=== PATIENT | female | born 1990 | race Caucasian/White ===

== ENCOUNTER 2019-06-04 20:55 | Emergency (ER) | payer OTHER ==
[2019-06-04 21:11] VITALS: BP 107/63
--- NOTE | 2019-06-04 21:46 | ED Physician Documentation ---
PD HPI URI - Stated complaint Stated Complaint: FLU LIKE SYMP. - Chief complaint Chief Complaint: Resp - History obtained from History obtained from: Patient - History of Present Illness Timing - onset: How many days ago (3) Timing duration: Days (3) Timing details: Gradual onset Pain level max: 3 Pain level now: 2 Associated symptoms: Fever (100.7), Nasal congestion, Rhinorrhea, Sore throat, Dry cough Contributing factors: Sick contact. No: Travel, Immunocompromised, Unimmunized, COPD / asthma Improves by: Rest Worsened by: Activity, Breathing Recently seen: Not recently seen Review of Systems Constitutional: denies: Fever, Chills Nose: reports: Rhinorrhea / runny nose, Congestion Respiratory: reports: Cough GI: denies: Vomiting, Diarrhea Skin: denies: Rash Musculoskeletal: denies: Neck pain, Back pain Neurologic: denies: Headache PD PAST MEDICAL HISTORY - Past Medical History Past Medical History: No - Past Surgical History Past Surgical History: No - Present Medications Home Medications: Ambulatory Orders Medication Instructions Recorded Confirmed Cetirizine HCl/Pseudoephedrine 1 each PO BID PRN #30 tab.er.12h 06/04/19 [Zyrtec-D Tablet] - Allergies Allergies/Adverse Reactions: Allergies Allergy/AdvReac Type Severity Reaction Status Date / Time codeine AdvReac Unknown Verified 06/04/19 21:42 - Social History Does the pt smoke?: No Smoking Status: Never smoker Does the pt drink ETOH?: Yes Does the pt have substance abuse?: No - Immunizations Immunizations are current?: Yes - POLST Patient has POLST: No PD ED PE NORMAL - Vitals Vital signs reviewed: Yes - General General: Alert and oriented X 3, No acute distress, Well developed/nourished - HEENT HEENT: PERRL, Ears normal, Moist mucous membranes, Pharynx benign - Neck Neck: Supple, no meningeal sign, No adenopathy - Cardiac Cardiac: RRR, Strong equal pulses - Respiratory Respiratory: No respiratory distress, Clear bilaterally - Abdomen Abdomen: Soft, Non tender, Non distended - Derm Derm: Warm and dry, No rash - Neuro Neuro: Alert and oriented X 3 - Psych Psych: Normal mood, Normal affect Results - Vitals Vitals: Vital Signs - 24 hr 06/04/19 21:07 Temperature 37 C Heart Rate 75 Respiratory 18 Rate Blood Pressure 107/63 O2 Saturation 100 Oxygen O2 Source Room air PD MEDICAL DECISION MAKING - ED course Complexity details: considered differential, d/w patient ED course: Patient is well-appearing, nontoxic. Afebrile. No sepsis. No hypoxia. No pneumonia. We will continue supportive care and follow-up with her doctor. Patient counseled regarding signs and symptoms for which I believe and urgent re-evaluation would be necessary. Patient with good understanding of and agreement to plan and is comfortable going home at this time This document was made in part using voice recognition software. While efforts are made to proofread this document, sound alike and grammatical errors may occ ur. Departure - Departure Disposition: Home, Self Care Clinical Impression: Viral URI Condition: Good Instructions: ED URI Viral Follow-Up: Macie Souza PA [Primary Care Provider] - Within 1 week Prescriptions: Cetirizine HCl/Pseudoephedrine [Zyrtec-D Tablet] 1 each PO BID PRN #30 tab.er.12h PRN Reason: nasal congestion Comments: Return if you worsen. This will likely last 10-14 days. Drink plenty of fluids and rest. Discharge Date/Time: 06/04/19 21:50
== END 2019-06-04 21:50 | disposition home or self-care (01) ==
LOC: ED 20:55
DX: J06.9 Acute upper respiratory infection, unspecified (principal)
CPT/HCPCS: 99282; 99284

== ENCOUNTER 2019-09-06 17:08 | Outpatient (CLI) | payer OTHER ==
--- NOTE | 2019-09-07 05:38 | Ultrasound Report ---
Reason: POSITIVE TEST Procedure Date: 09/06/2019 Accession Number: [id number] / [id number] Procedure: US - OB First Trimester CPT Code: Final Report FULL RESULT: EXAM: FIRST TRIMESTER OBSTETRIC ULTRASOUND (Less than 11 weeks) EXAM DATE: 09/06/2019 05:50 PM CLINICAL HISTORY: Positive test. LMP: 07/02/2019. COMPARISONS: None. TECHNIQUE: Transabdominal ultrasound examination with static image documentation. CLINICAL DATES: EGA 9 weeks and 3 days with LUCINDA 04/07/2020 based on LMP. ASSESSMENT: Gestational Sac: Single intrauterine. Mean gestational sac diameter: 42 mm = 9 weeks/5 days. Embryo: CRL (crown-rump length) 21 mm = 8 weeks/5 days. Cardiac activity: 174 beats per minute. Yolk sac: 5 mm. Amniotic fluid: Not accurately assessed at this gestational age. Early placenta: Not visible at this gestational age. Other: 1.2 x 1.1 cm perigestational fluid collection. MATERNAL STRUCTURES: Uterus: Anteverted. Cervix: Closed. Right Ovary/Adnexa: The ovary measures 2.7 x 2.2 x 2.4 cm, volume 7.3 cc. Unremarkable. Left Ovary/Adnexa: The ovary measures 2.7 x 1.3 x 2.5 cm, volume 4.5 cc. Unremarkable. Free Fluid: None. Other: None. IMPRESSION: 1. Single viable intrauterine at EGA 8 weeks and 5 days with LUCINDA 04/12/2020 based on crown-rump length, which is discordant with clinical dates. 2. Assigned dating is LUCINDA 04/12/2020 based on current ultrasound. 3. 1.2 x 1.1 cm perigestational fluid collection. RADIA
== END 2019-09-06 17:09 | disposition home or self-care (01) ==
LOC: DI 17:08
PROVIDERS: ATTEND Nurse Practitioner Obstetrics & Gynecology
DX: Z32.01 Encounter for pregnancy test, result positive (principal)
CPT/HCPCS: 76801

== ENCOUNTER 2019-09-13 08:00 | Outpatient (CLI) | payer OTHER ==
[2019-09-13 15:01] LABS: MUDS CUTOFF CONCENTRATIONS CUTOFF CONC BELOW:
[2019-09-13 15:09] LABS: BILIRUBIN,URINE NEGATIVE (NEGATIVE); GLUCOSE, URINE (UA) NEGATIVE (NEGATIVE); KETONES,URINE (UA) NEGATIVE (NEGATIVE); LEUKOCYTE ESTERASE, URINE SMALL (NEGATIVE); NITRITE,URINE NEGATIVE (NEGATIVE); OCCULT BLOOD,URINE NEGATIVE (NEGATIVE); PROTEIN,URINE NEGATIVE (NEGATIVE); UROBILINOGEN,URINE 0.2 (NORMAL) E.U./dL (NORMAL)
[2019-09-13 15:14] LABS: CLARITY,URINE CLOUDY (CLEAR)
[2019-09-13 15:20] LABS: AMPHETAMINE SCREEN,URINE NEGATIVE (NEGATIVE); BENZODIAZEPINES SCREEN, URINE NEGATIVE (NEGATIVE); COCAINE SCREEN URINE NEGATIVE (NEGATIVE); METHADONE SCREEN, URINE NEGATIVE (NEGATIVE); METHAMPHETAMINES SCREEN, URINE NEGATIVE (NEGATIVE); OPIATE SCREEN, URINE NEGATIVE (NEGATIVE); OXYCODONE SCREEN, URINE NEGATIVE (NEGATIVE); PROPOXYPHENE SCREEN, URINE NEGATIVE (NEGATIVE); TRICYCLIC ANTIDEPRESSANT,URINE NEGATIVE (NEGATIVE)
[2019-09-13 15:25] LABS: AMORPHOUS SEDIMENT,UR Moderate /LPF; BACTERIA,URINE Few /HPF (None Seen); RBC,URINE 0-5 /HPF (0-5); SQUAMOUS EPITHELIAL CELL,UR NONE SEEN (<= Few)
[2019-09-13 21:21] LABS: TRICHOMONAS VAGINALIS DNA NEGATIVE (NEGATIVE)
== END 2019-09-13 23:59 | disposition home or self-care (01) ==
LOC: LAB.R 08:00
PROVIDERS: ATTEND Obstetrics & Gynecology
DX: Z36.89 Encounter for other specified antenatal screening (principal)
CPT/HCPCS: 80306; 81001; 87086; 87491; 87591; 87661

== ENCOUNTER 2019-11-19 08:56 | Outpatient (CLI) | payer OTHER ==
--- NOTE | 2019-11-19 19:15 | Ultrasound Report ---
Reason: SCREENING Procedure Date: 11/18/2019 Accession Number: [id number] / [id number] Procedure: US - OB Detailed Eval CPT Code: Final Report FULL RESULT: PROCEDURE: OB Detailed Eval INDICATIONS: SCREENING OUTSIDE/PRIOR DATING DATA: Last menstrual period (LMP): 07/02/2019. LMP-based estimated date of delivery (LUCINDA): 04/07/2020. First dating scan (date and location): 09/06/2019. Estimated date of delivery (LUCINDA) from first dating scan: 04/12/2020. TECHNIQUE: Real-time scanning was performed of the fetus, with image documentation and biometric measurements. Endovaginal scanning: Not performed COMPARISON: 09/06/2019 FINDINGS: General: A single living intrauterine gestation is present. Presentation: Cephalic/variable Placenta: Placental position is posterior, without previa. Anechoic structure measuring 7.9 x 1.2 x 1.7 cm adjacent to the left placental edge, possibly representing a placental syed. Amniotic fluid index: 9.3 cm, which measures at 6th percentile for gestational age. heart rate: 136 beats per minute. Maternal cervical canal: 6 cm long; normal length is 2.5 cm or more. biometrics: Biparietal diameter: 4.3 cm, correlating with 18 weeks and 6 days Head circumference: 17.1 cm, correlating with 19 weeks and 5 days Abdominal circumference: 15.6 cm, correlating with 20 weeks and 5 days Femur length: 3.0 cm, correlating with 19 weeks and 2 days Estimated gestational age from initial scan: not applicable. Composite gestational age from present scan: 19 weeks and 5 days Estimated weight and percentile: 327 g which correlates with the 85th percentile based off gestational age. Measurement variability in biometric dating: +/- 10 days from 12-20 weeks gestation, +/- 2 weeks from 20-30 weeks gestation, +/- 3 weeks at 30 weeks gestation or later. Anatomic survey: Neuro: Ventricles are normal at less than 10 mm. Cisterna magna is normal at 3-11 mm. Cerebellum is normal in size and morphology. Nuchal skin fold: Normal at less than 6 mm between 14 and 20 weeks gestational age. Face: Nose and lips, facial profile are normal. Spine: No evidence for spina bifida. Heart: 4-chambered heart is present, with normal ventricular outflow tracts. Diaphragm: Diaphragm is intact. Stomach: Left-sided stomach is present. Kidneys: No hydronephrosis. Normal is less than 5 mm in 2nd trimester, less than 7 mm in 3rd trimester. Cord: 3 vessel cord has orthotopic insertion. Bladder: Normal in size. Extremities: All 4 extremities are visualized. IMPRESSION: 1. Single living intrauterine gestation with an estimated sonographic gestational age of approximately 19 weeks and 5 days. Expected interval growth has occurred. 2. Four-quadrant JODIE measured 9.3 cm which correlates with the 6th percentile based on gestational age. Clinical follow-up recommended. 3. Estimated weight of 327 [address] the fetus within the 85th percentile based on gestational age. 4. Unremarkable second trimester anatomic screening survey. Reviewed by: Kayden Juarez MD on 11/19/2019 7:13 PM PDT Approved by: Kayden Juarez MD on 11/19/2019 7:13 PM PDT Station ID: [id number]
== END 2019-11-19 08:57 | disposition home or self-care (01) ==
LOC: DI 08:56
PROVIDERS: ATTEND Obstetrics & Gynecology
DX: Z34.82 Encounter for supervision of other normal pregnancy, second trimester (principal); Z36.89 Encounter for other specified antenatal screening
CPT/HCPCS: 76811

== ENCOUNTER 2019-12-07 13:05 | Outpatient (CLI) | payer OTHER ==
--- NOTE | 2019-12-07 14:45 | Ultrasound Report ---
PROCEDURE: OB F/U or Repeat INDICATIONS: ABNORMAL FINDING IN AMNIOTIC FLUID OUTSIDE/PRIOR DATING DATA: Last menstrual period (LMP): 07/02/2019. LMP-based estimated date of delivery (LUCINDA): 04/07/2020. First dating scan (date and location): 09/06/2019. Estimated date of delivery (LUCINDA) from first dating scan: 04/12/2020. TECHNIQUE: Real-time scanning was performed of the fetus, with image documentation and biometric measurements. Endovaginal scanning: Not needed COMPARISON: OB ultrasound 09/06/2019, 11/19/2019 FINDINGS: General: A single living intrauterine gestation is present. Presentation: Variable Amniotic fluid index: 18.8 cm, 84th percentile for gestational age. A left-sided placental syed ashly ears present measuring approximately 7.9 x 1.2 x 1.7 cm. heart rate: 143 beats per minute. Maternal cervical canal: 4.5 cm long; normal length is 2.5 cm or more. Other: Not applicable. IMPRESSION: Normal amniotic fluid volume. Viable intrauterine gestation, variable in presentation at this time. Reviewed by: Ej Osborn MD on 12/07/2019 2:44 PM PDT Approved by: Ej Osborn MD on 12/07/2019 2:44 PM PDT Station ID: [id number]
== END 2019-12-07 13:06 | disposition home or self-care (01) ==
LOC: DI 13:05
PROVIDERS: ATTEND Obstetrics & Gynecology
DX: O28.9 Unspecified abnormal findings on antenatal screening of mother (principal)
CPT/HCPCS: 76816

== ENCOUNTER 2019-12-08 16:30 | Outpatient (CLI) | payer OTHER | END 2019-12-08 16:31 | disposition home or self-care (01) | LOC: LAB 16:30 | PROVIDERS: ATTEND Physician Assistant | DX: Z11.59 Encounter for screening for other viral diseases (principal) | CPT/HCPCS: 81599 ==

== ENCOUNTER 2020-03-14 08:00 | Outpatient (CLI) | payer OTHER | END 2020-03-14 23:59 | disposition home or self-care (01) | LOC: LAB.R 08:00 | PROVIDERS: ATTEND Nurse Practitioner Obstetrics & Gynecology | DX: Z36.85 Encounter for antenatal screening for Streptococcus B (principal) | CPT/HCPCS: 87797 ==

== ENCOUNTER 2020-03-30 14:27 | Outpatient (CLI) | payer OTHER ==
--- NOTE | 2020-03-30 16:38 | Ultrasound Report ---
PROCEDURE: OB F/U or Repeat INDICATIONS: UTERINE SIZE DESCREPANCY OUTSIDE/PRIOR DATING DATA: Last menstrual period (LMP): 07/02/2019. LMP-based estimated date of delivery (LUCINDA): 04/07/2020. First dating scan (date and location): 09/06/2019. Estimated date of delivery (LUCINDA) from first dating scan: 04/12/2020. TECHNIQUE: Real-time scanning was performed of the fetus, with image documentation and biometric measurements. Endovaginal scanning: Not performed COMPARISON: 11/19/2019 12/07/2019. FINDINGS: General: A single living intrauterine gestation is present. Presentation: Vertex Placenta: Placental position is posterior/fundal, without previa. Amniotic fluid index: 13.2 cm, 50th percentile for gestational age. heart rate: 144 beats per minute. biometrics: Biparietal diameter: 9.0 cm, 36 weeks 4 days Head circumference: 33.8 cm, 38 weeks 5 days Abdominal circumference: 34.3 cm, 38 weeks 1 day Femur length: 7.4 cm, 37 weeks 5 days Estimated gestational age from initial scan: 38 weeks 1 day. Composite gestational age from present scan: 37 weeks 6 days Estimated weight and percentile: 3341 g, 57th percentile Measurement variability in biometric dating: +/- 10 days from 12-20 weeks gestation, +/- 2 weeks from 20-30 weeks gestation, +/- 3 weeks at 30 weeks gestation or more. Other: Normal appearance of the chest, stomach, kidneys and bladder. IMPRESSION: Single living intrauterine fetus in vertex presentation. Normal JODIE Expected interval growth as above Reviewed by: Isiah Ayoub MD on 03/30/2020 4:36 PM PDT Approved by: Isiah Ayoub MD on 03/30/2020 4:36 PM PDT Station ID: [id number]
== END 2020-03-30 14:28 | disposition home or self-care (01) ==
LOC: DI 14:27
PROVIDERS: ATTEND Nurse Practitioner Obstetrics & Gynecology
DX: O26.843 Uterine size-date discrepancy, third trimester (principal); Z3A.37 37 weeks gestation of pregnancy
CPT/HCPCS: 76816

== ENCOUNTER 2020-04-02 19:08 | Inpatient (IN) | payer OTHER ==
[2020-04-02] MEDS ORDERED: METHYLERGONOVINE 0.2 MG/ML VIAL IM PRN (19:33)
[2020-04-02] MEDS ORDERED: CARBOPROST TROMETHAMINE 250 MCG/ML AMP IM PRN (19:33)
[2020-04-02] MEDS ORDERED: miSOPROStoL 200 MCG TABLET BC PRN (19:33)
[2020-04-02] MEDS ORDERED: SODIUM CHLORIDE FLUSH 0.9% 10 ML SYRINGE IVP PRN (19:33)
[2020-04-02] MEDS ORDERED: LIDOCAINE-MPF 1% 30 ML VIAL ID PRN (19:33)
[2020-04-02] MEDS ORDERED: TRANEXAMIC ACID 1,000 MG in SODIUM CHLORIDE 0.9% 100ML 100 ML IV PRN (19:33)
[2020-04-02] MEDS ORDERED: OXYTOCIN/SODIUM CHLORIDE 500 ML IV PRN (19:33)
[2020-04-02] MEDS ORDERED: OXYTOCIN 10 UNIT/ML VIAL IM PRN (19:33)
[2020-04-02] MEDS ORDERED: LACTATED RINGERS 1,000 ML IV ONE (19:39)
[2020-04-02] MEDS ORDERED: OXYTOCIN/SODIUM CHLORIDE 500 ML IV ONE (19:39)
--- NOTE | 2020-04-02 19:49 | HISTORY & PHYSICAL EXAMINATION ---
Admit History - Visit Reason Visit Reason: Contractions - : 4 Parity: 3 Premature: 0 Ectopic: 0 : 0 Care: positive: [facility] Risk/History: positive: None Complications This : positive: None Smoking Status: Never smoker - Mother's Labs Mother's Blood Type: positive: O Mother's RH: positive: Positive GBS: positive: Group B Step Negative Rubella Status: positive: Immune Meds/Allgy - Home Medications Home Medications: Ambulatory Orders Medication Instructions Recorded Confirmed Cetirizine HCl/Pseudoephedrine 1 each PO BID PRN #30 tab.er.12h 06/04/19 [Zyrtec-D Tablet] - Allergies Allergies/Adverse Reactions: Allergies Allergy/AdvReac Type Severity Reaction Status Date / Time codeine AdvReac Unknown Verified 06/04/19 21:42 Review of Systems - Constitutional Constitutional: denies: Fatigue, Fever, Chills - Eyes Eyes: denies: Blurred vision, Spots in vision, Dipolpia - Cardiovascular Cariovascular: denies: Irregular heart rate, Chest pain, Edema - Respiratory Respiratory: denies: SOB at rest - Gastrointestinal Gastrointestinal: denies: Constipation, Diarrhea, Nausea, Vomiting - Integumentary Integumentary: denies: Rash, Pruritis - Neurological Neurological: denies: Headache Physical - Abdominal Exam Vital Signs: Temp Pulse Resp BP Pulse Ox 36.9 C 78 16 123/80 100 04/02/20 19:20 04/02/20 19:20 04/02/20 19:20 04/02/20 19:20 04/02/20 19:20 Contraction Frequency (min/apart): 2-4 Contraction Intensity: positive: Strong Uterine Resting Tone: positive: Soft - Monitoring Heart Rate Baseline: 130 Strip Review: positive: Category I - Presentation Presentation: positive: Vertex - Vaginal Exam Membranes: positive: Membranes intact Dilation (in cm): 8-9 Effacement (%): 100 Station: positive: -1 Cervical Position: positive: Anterior - Speculum Exam Speculum Exam Performed: positive: No Plan for Labor - Plan For Labor I expect patient to be DC'd or transferred within 96 hours.: Yes Plan for Labor: HPI: Bhaskar is a 29yo @ 39.2wks gestation by LMP c/w 8.6wk U/S presents to [facility] in active labor. SVE 8-9/100/-1, vertex, with intact membranes. She reports contractions have increased in frequency and intensity since approximately 1500 this afternoon. She denies vaginal bleeding or leakage of fluid and reports +FM. She has a been a patient of [facility] through the duration of her which has remained uncomplicated. She will be admitted to [facility] for expectant management. Dating criteria: LMP 07/02/19 gives LUCINDA 04/07/20 US on 09/06/19 at 8w6d gives LUCINDA 04/12/20 Does not exceed 5 days discordance, per ACOG cwd Serial exams- agree OB History: G1: 03/29/2013, , 39wks; female; 8lb, episiotomy G2: 11/09/2015, , 39wks; female; 7lb 4.5oz; 2nd degree laceration G3: 02/12/2018, , 39wks; female; 7lbs 11oz G4: current Medications: PNV Allergies: Codeine (critical) PMHx: no significant Surgical Hx: strabismus surgery as an infant - right Social Hx: Never smoker, no ETOH or IVDA. - Neo Family Hx: HTN - father; diabetes - father; thyroid cancer - father; CAD-father; LA <55 - father Course: DATING: LMP 07/02/19 gives LUCINDA 04/07/20 US on 09/06/19 at 8w6d gives LUCINDA 04/12/20 Does not exceed 5 days discordance, per ACOG cwd Does not want to know gender O pos/ Rub imm Genetic screening - declined FAS with JODIE 6%ile and question of placental syed. FU us ordered 12/07/19 JODIE 18.8; persistent placental syed f/u US 03/30/2020- JODIE 50%, efw 57%. Placenta reported as posterior/fundal, without previa. No mention of placental syed. TDAP 03/14/2020 Influenza 03/21/2020 Glucola 111 Breast pump prescription given Denies HSV GBS NEG Physical Exam: Normocephalic, atraumatic Heart RRR w/o M/G/R Lungs CTAB Abdomen gravid, soft, nontender EFW 3400g Contractions palpate firm every 2-3 minutes with soft resting tone FHR baseline 130s, moderate variability, + accels, no decels SVE 8-9/100/-1, vertex. Intact membranes Bilateral LE's no edema. Mood is good. supportive at the bedside. Assessment: 29yo @ 39.2wks gestation by LMP c/w 8.6wk U/S Active labor GBS neg FHR Category I Plan: Admit for expectant management Continuous monitoring Consider AROM Anticipate
[2020-04-02 19:55] LABS: BASOPHILS % (AUTO) 0.2 %; EOSINOPHILS % (AUTO) 0.2 %; HGB - HEMOGLOBIN 13.2 g/dL (12.0-16.0); LYMPHOCYTES # (AUTO) 1.6 10^3/uL (1.5-3.5); MEAN CORPUSCULAR HGB CONC 34.1 g/dL (32.0-36.0); MEAN CORPUSCULAR VOLUME 93.9 fL (81.0-99.0); MEAN PLATELET VOLUME 11.7 fL (7.9-10.8); MONOCYTES # (AUTO) 0.7 10^3/uL (0.0-1.0); MONOCYTES % (AUTO) 7.1 %; NEUTROPHILS # (AUTO) 7.7 10^3/uL (1.5-6.6); NEUTROPHILS % (AUTO) 75.8 %; PLT - PLATELET COUNT 172 10^3/uL (130-450); RED BLOOD COUNT 4.12 10^6/uL (4.20-5.40); RED CELL DISTRIBUTION WIDTH 12.4 % (12.0-15.0); WHITE BLOOD COUNT 10.1 x10^3/uL (4.8-10.8)
[2020-04-02] MEDS ORDERED: LACTATED RINGERS 1,000 ML IV SCH (20:00)
[2020-04-02] MEDS ORDERED: HYDROCORTISONE 1% CREAM 28 GM TUBE PR PRN (21:35)
[2020-04-02] MEDS ORDERED: WITCH HAZEL/GLYCERIN 1 PAD TOP PRN (21:35)
--- NOTE | 2020-04-02 21:42 | DELIVERY NOTE ---
Delivery Note - Labor Labor: positive: Spontaneous, Augmented by ARM - Infant Delivery Method Delivery Method: positive: Spontaneous vaginal delivery - Presentation Presentation: positive: Vertex, ELY - right occiput anterior - Nuchal Cord Nuchal Cord: positive: None - Amniotic Fluid Description Amniotic Fluid Description: positive: Clear - Episiotomy Type Episiotomy Type: positive: None - Laceration Laceration: positive: None - Delivery Outcome Delivery Outcome: positive: Livebirth - : positive: Placed in direct skin contact with mother, Stimulated, Warmed, [place] used sex: positive: Male - Cord Cord: positive: 3 vessels - Placenta Placenta: positive: Intact, Spontaneous - Estimated Blood Loss Estimated Blood Loss (in cc): 300 - Post Delivery Events Post Delivery Events: positive: No post delivery events - Delivery Comments (Free Text/Narrative) Delivery Comments (Free Text/Narrative): Labor: This 29yo @ 39.2wks gestation by LMP c/w 8.6wk U/S presented to [facility] on 04/02/2020 at approximately 1930 in active labor. SVE 8-9/100/-1, vertex. FHR pattern demonstrated Category I pattern throughout labor. Normal labor course. AROM occurred @ 2019 and was noted to be a small amount of clear fluid. Pt progressed to c/c/0 at 2036. : Normal of viable male infant on 04/02/2020 @ 2117 in ELY position. No nuchal cord. The was stimulated, dried, and placed skin to skin. 's were 8/9 at 1 and 5 min respectively. Pitocin administered via IV for hemostasis. The umbilical cord was allowed to stop pulsating at which time it was doubly clamped by CNM and cut by FOB. 3VC. Cord blood was obtained. Gentle downward traction applied to umbilical cord and fundus massaged for active management of the third stage. Placenta delivered spontaneously and intact at 2128. EBL 300mL. Fourth Stage: Uterine fundus firm and there is no excessive bleeding. The perineum, vagina, and cervix were inspected and found to be intact. initiated. Family bonding well. Both mother and baby were left in stable condition.
[2020-04-03] MEDS: IBUPROFEN 800 MG TABLET PO SCH ×5 (03:11→21:09)
[2020-04-03] MEDS: ACETAMINOPHEN 500 MG TABLET PO SCH ×3 (08:36→15:04)
[2020-04-03] MEDS: DOCUSATE SODIUM 100 MG CAPSULE PO SCH ×2 (09:03→21:09)
[2020-04-03] MEDS: SODIUM CHLORIDE FLUSH 0.9% 10 ML SYRINGE IVP SCH ×2 (09:05→09:06)
--- NOTE | 2020-04-03 09:29 | PROVIDER PROGRESS NOTE ---
Subjective - Subjective Subjective: FINAL PROGRESS NOTE: S: Bonding well with baby. without difficulty. Pain well controlled with oral medications. Bleeding decreased and is light. Mood is good. supportive at the bedside. They desire to be discharged home today. They feel comfortable being at home and are aware of what to look for/when to seek care. They are experienced parents as this is their 4th child. O: Bp 113/69, T 36.6, HR 70, RR 18 Admit Hgb 13.2/Hct 38.7 Heart RRR w/o M/G/R, lungs CTAB, abdomen soft and nontender with fundus firm at U-1, light lochia rubra, perineum intact, bilateral LE's no edema. Bilateral LE variscosities improved already. Mood is good. A: 29yo -->P4 PPD#1 s/p TSVD viable male infant Normal recovery P: Reviewed pp self care and warning s/sx. Advised continuation of PNV while . Advised continuation of Ibuprofen and Tylenol OTC PRN pain. Discharge home today at 24hr - hold discharge if not discharge. F/u at [facility] at 1 week pp or sooner PRN. Pt and at the bedside verbalized understanding and agree to above plan. They deny further questions or concerns at this time. Objective - Vital Signs/Intake & Output Vital Signs: Vital Signs x48h Temp Pulse Resp BP Pulse Ox 04/03/20 08:39 36.5 C 62 16 110/69 100 04/03/20 01:47 36.6 C 70 18 113/69 100 Intake & Output: Intake & Output 03/31/20 04/01/20 04/02/20 04/03/20 23:59 23:59 23:59 23:59 Intake Total 500 Output Total 300 Balance 200 - Lab Results Fish Bones: 04/02/20 19:35 Other Labs: Lab Results x24hrs 04/02/20 04/02/20 Range/Units 19:35 19:35 WBC 10.1 (4.8-10.8) x10^3/uL RBC 4.12 L (4.20-5.40) 10^6/uL Hgb 13.2 (12.0-16.0) g/dL Hct 38.7 (37.0-47.0) % MCV 93.9 (81.0-99.0) fL MCH 32.0 H (27.0-31.0) pg MCHC 34.1 (32.0-36.0) g/dL RDW 12.4 (12.0-15.0) % Plt Count 172 (130-450) 10^3/uL MPV 11.7 H (7.9-10.8) fL Neut # (Auto) 7.7 H (1.5-6.6) 10^3/uL Lymph # (Auto) 1.6 (1.5-3.5) 10^3/uL [place] # (Auto) 0.7 (0.0-1.0) 10^3/uL Eos # (Auto) 0.0 (0.0-0.7) 10^3/uL Baso # (Auto) 0.0 (0.0-0.1) 10^3/uL Absolute Nucleated RBC 0.00 x10^3/uL Nucleated RBC % 0.0 /100WBC Blood Type O POSITIVE Antibody Screen NEGATIVE
--- NOTE | 2020-04-03 09:30 | Discharge Plan ---
Discharge Plan Problem Reviewed?: Yes Disposition: Home, Self Care Condition: Good Diet: Regular Activity Restrictions: No Restrictions Shower Restrictions: No Weight Bearing: Full Weight No Smoking: If you smoke, Please STOP! Call for help. Follow-up with: Bee Rodriguez CNM, ARNP [Provider Admit Priv/Credential] -
--- NOTE | 2020-04-03 11:06 | DISCHARGE SUMMARY ---
Physician: CECILLE Reid DATE OF ADMISSION: 04/02/2020 DATE OF DISCHARGE: 04/03/2020 DIAGNOSES ON ADMISSION 1. A 29-year-old G4, P3-0-0-3 at 39.2 weeks' gestation. 2. Active labor. 3. Group B streptococcus negative. DIAGNOSES ON DISCHARGE 1. A 29-year-old G4, P4-0-0-4, status post spontaneous vaginal delivery on 04/02/2020. 2. . 3. Normal recovery. BRIEF HISTORY: She is a patient of [facility], who presented on 04/02/2020 in active labor. Sterile vaginal examination revealed 8-9 cm dilated, 100% effaced, -1 station, vertex position. Normal labor course. Patient progressed to complete and spontaneously delivered a viable male infant on 04/02/2020, at 2118. Apgars were 8 and 9 at one and five minutes respectively. EBL 300 mL. The perineum, vagina, and cervix were inspected and found to be intact. She has been doing well in her course. She is ambulating and tolerating a regular diet. She is urinating without difficulty, and her lochia is normal. Her pain is well controlled with oral medications. She will be discharged home today on day #1 at the 24-hour eladio with instructions to continue her vitamin while and, in addition, instructions to continue ibuprofen and Tylenol [id number] as needed for pain management. She intends to follow up with myself at [facility] in 1 week for a support visit and visit or sooner if needed. She has been given precautions to call if she has any worsening fevers, chills, abdominal pain, increased bleeding, or foul-smelling vaginal lochia. TD: 04/03/2020 09:35 PAULETTE
[2020-04-03 21:00] VITALS: BP 113/75
--- NOTE | 2020-04-03 22:05 | Labor Flowsheet ---
Labor Flowsheet Datetime Report Generated by CPN: 04/03/2020 22:05 Datetime: 04/03/2020 01:38 VITAL SIGNS NBP Sys/Geri/Mean (mmHg): 113 : 69 : 80 Pulse: 70 LaborFlag: Labor Datetime: 04/02/2020 21:30 SpO2 (%): 97 Datetime: 04/02/2020 21:18 UTERINE ACTIVITY Monitor Mode: External Frequency (min): 1.5-3 Quality: Strong Duration (sec): 70-120 Pattern: Normal: <= 5 Contractions in 10 Minutes Resting Tone (Palpate): Relaxed ASSESSMENT A Monitor Mode: Telemetry FHR Baseline Rate : 140 Variability: Moderate 6-25 bpm Accelerations: 15X15 Decelerations: Variable Actions for Decelerations: Side to Side Category: Category II Datetime: 04/02/2020 21:16 STAGE 2 Pushing: Coached on Pushing Pushing Position: Pushing with Contractions Pushing Progress: with Pushing Datetime: 04/02/2020 20:40 Stage 2 Comments: breathing through ctx, pushing when pt feels its necessary Datetime: 04/02/2020 20:37 VAGINAL EXAM Dilatation (cm): 10.0 Effacement (%): 100 Station: 0 Exam by: A.Jennifer Datetime: 04/02/2020 20:33 COMMUNICATION Communication: Provider at Bedside Provider Notified (Name): A. Jennifer Communication Comments: pt feels she needs to push Datetime: 04/02/2020 20:30 PAIN Pain Scale: 9 Pain Presence: Intermittent Pain Type: Contraction Datetime: 04/02/2020 20:29 Membranes Ruptured Date/Time: 04/02/2020 20:20 Amniotic Fluid Odor: Normal Datetime: 04/02/2020 20:20 Membrane Status: Ruptured Membranes Rupture Method: Artificial Amniotic Fluid Color: Clear Amniotic Fluid Amount: Scant Membrane Comments: 2019
== END 2020-04-03 21:45 | disposition home or self-care (01) | DRG 807 ==
LOC: WFO 19:08 → FBP 19:10 → WFO 19:33 → FBP 19:33
PROVIDERS: ADMIT Nurse Practitioner Obstetrics & Gynecology; ATTEND Nurse Practitioner Obstetrics & Gynecology
PROC: 10E0XZZ Delivery of Products of Conception, External Approach (ICD-10-PCS; principal; 2020-04-02)
PROC: 10907ZC Drainage of Amniotic Fluid, Therapeutic from Products of Conception, Via Natural or Artificial Opening (ICD-10-PCS; 2020-04-02)
DX: O80 Encounter for full-term uncomplicated delivery (principal); Z37.0 Single live birth; Z3A.39 39 weeks gestation of pregnancy
CPT/HCPCS: 85025; 86850; 86900; 86901; 99213; A9270; J7120